=== PATIENT | male | born 1955 | race Caucasian/White ===

== ENCOUNTER → 2021-02-10 | Outpatient (CLI) | payer MEDICARE ==
[~2021-02-10] MED LIST: ASPIRIN 81M81 MG/TA2 PO; B-121000 MCG PO; COZAAR100 MG PO; FLONASEALLERGY; GLUCOPHAGE1000 MG PO; GLUCOTROL10 MG PO; HCTZ 25MG TAB25 MG PO; K-DUR20 MEQ PO; LIPITOR20 MG PO; NORVASC 5MG5 MG/TAB PO; PRILOSEC 20MG20 MG PO; ULORIC40 MG PO; VITAMIN D3400 I1 PO
== END ==
LOC: COL.RAD 12:28
DX: C80.1 Malignant (primary) neoplasm, unspecified (principal); R22.0 Localized swelling, mass and lump, head; Z98.890 Other specified postprocedural states
CPT/HCPCS: Q9967

== ENCOUNTER 2021-02-26 11:04 | Emergency (ER) | payer MEDICARE ==
[~2021-02-26] VITALS: Ht 175.3 cm; Wt 98.2 kg
[2021-02-26 11:10] VITALS: BP 170/87; PULSE 89; TEMP 98.9
[2021-02-26] MEDS ORDERED: COZAAR100 MG PO (11:17)
[2021-02-26] MEDS ORDERED: ASPIRIN 81M81 MG/TA2 PO (11:17)
[2021-02-26] MEDS ORDERED: GLUCOPHAGE1000 MG PO (11:18)
[2021-02-26] MEDS ORDERED: K-DUR20 MEQ PO (11:18)
[2021-02-26] MEDS ORDERED: HCTZ 25MG TAB25 MG PO (11:19)
[2021-02-26] MEDS ORDERED: PRILOSEC 20MG20 MG PO (11:19)
[2021-02-26] MEDS ORDERED: ULORIC40 MG PO (11:19)
[2021-02-26] MEDS ORDERED: GLUCOTROL10 MG PO (11:20)
[2021-02-26] MEDS ORDERED: FLONASEALLERGY (11:20)
[2021-02-26] MEDS ORDERED: LIPITOR20 MG PO (11:20)
[2021-02-26] MEDS ORDERED: NORVASC 5MG5 MG/TAB PO (11:20)
[2021-02-26] MEDS ORDERED: B-121000 MCG PO (11:21)
[2021-02-26] MEDS ORDERED: VITAMIN D3400 I1 PO (11:21)
== END 2021-02-26 11:55 | disposition home or self-care (01) ==
LOC: COL.ER 11:04
DX: K40.90 Unilateral inguinal hernia, without obstruction or gangrene, not specified as recurrent (principal); E11.9 Type 2 diabetes mellitus without complications; M10.9 Gout, unspecified; Z79.899 Other long term (current) drug therapy; Z79.84 Long term (current) use of oral hypoglycemic drugs

== ENCOUNTER → 2021-06-21 | Outpatient (CLI) | payer MEDICARE | LOC: COL.RAD 07:43 | DX: C44.92 Squamous cell carcinoma of skin, unspecified (principal) | CPT/HCPCS: Q9967 ==

== ENCOUNTER → 2021-07-12 | Outpatient (CLI) | payer OTHER | LOC: COL.RAD 09:16 | DX: K40.90 Unilateral inguinal hernia, without obstruction or gangrene, not specified as recurrent (principal) | CPT/HCPCS: Q9967 ==

== ENCOUNTER → 2022-07-02 | Outpatient (CLI) | payer MEDICARE | LOC: COL.RAD 07:16 | DX: C44.329 Squamous cell carcinoma of skin of other parts of face (principal); R59.0 Localized enlarged lymph nodes | CPT/HCPCS: A9575 ==